=== PATIENT | female | born 2000 | race African-American/Black ===

== ENCOUNTER 2023-10-15 13:40 | Emergency (ER) | payer MEDICAID ==
[~2023-10-15] VITALS: Ht 177.8 cm; Wt 145.0 kg
[2023-10-15 13:50] VITALS: BP 111/68; PULSE 74; RESP 16; TEMP 98.7; O2SAT 99
== END 2023-10-15 19:27 | disposition left against medical advice (07) ==
LOC: ER 13:40
DX: M54.9 Dorsalgia, unspecified (principal); Z53.21 Procedure and treatment not carried out due to patient leaving prior to being seen by health care provider